=== PATIENT | male | born 1945 | race Caucasian/White ===

== ENCOUNTER 2021-03-01 09:07 | Outpatient (CLI) | payer MEDICARE, SELFPAY ==
--- NOTE | 2021-03-01 | ECG_ITS ---
Measurements Intervals [place] Rate: 52 P: 30 DC: 146 QRS: -39 QRSD: 129 T: 19 QT: 423 QTc: 396 Interpretive Statements SINUS BRADYCARDIA LEFT AXIS DEVIATION BORDERLINE AV CONDUCTION DELAY RIGHT BUNDLE BRANCH BLOCK BASELINE ARTIFACT- V4-V6 ABNORMAL ECG Electronically Signed On 03-01-2021 10:52:16 CDT by Abkar Mohan D.O.
[2021-03-01 10:09] LABS: Basophils Absolute Auto 0.1 K/mm3 (0.0-0.1); Basophils Percent Auto 0.9 % (0.2-1.2); Eosinophils Absolute Auto 0.1 K/mm3 (0-0.3); Eosinophils Percent Auto 0.9 % (0-4.4); Hematocrit 38.8 % (42.0-52.0); Hemoglobin 12.9 g/dL (14.0-18.0); Immature Granulocyte Absolute 0.02 K/mm3 (0.00-0.031); Immature Granulocyte Percent A 0.3 % (0-0.5); Lymphocytes Absolute Auto 1.59 K/mm3 (0.9-3.2); Lymphocytes Percent Auto 23.8 % (18.3-44.2); Mean Corpuscular HGB Conc 33.2 g/dl (32-36); Mean Corpuscular Hemoglobin 28.8 pg (26-34); Mean Corpuscular Volume 86.6 fl (80-100); Mean Platelet Volume 10.4 fl (7.4-10.4); Monocytes Absolute Auto 0.6 K/mm3 (0.1-0.6); Monocytes Percent Auto 8.8 % (2.6-8.5); Neutrophils Absolute Auto 4.4 K/mm3 (1.3-6.7); Neutrophils Percent Auto 65.3 % (45.5-73.1); Platelet Count Result 160 k/mm3 (150-375); Red Blood Count 4.48 M/mm3 (4.6-6.20); Red Cell Distribution Width 14.4 % (11.5-14.5); White Blood Count 6.7 K/mm3 (4.5-10.0)
[2021-03-01 10:21] LABS: Anion Gap 4 mmol/L (8-16); Blood Urea Nitrogen 24 mg/dL (9-20); Calcium 8.9 mg/dL (8.4-10.2); Carbon Dioxide 29 mmol/L (22-30); Chloride 99 mmol/L (98-107); Estimated Glomerular Filt Rate > 60; Glucose 87 mg/dL (75-110); Potassium 4.5 mmol/L (3.4-5.0); Sodium 132 mmol/L (137-145)
== END 2021-03-01 09:08 | disposition home or self-care (01) ==
PROVIDERS: PCP Family Medicine
DX: N52.9 Male erectile dysfunction, unspecified (principal); R94.31 Abnormal electrocardiogram [ECG] [EKG]
CPT/HCPCS: 36415; 80048; 85025; 87086; 93005

== ENCOUNTER → 2021-07-31 09:07 | Outpatient (CLI) | payer MEDICARE, SELFPAY ==
--- NOTE | ~2021-07-31 | XR_ITS ---
XR hip RT min 3V w AP pelvis DATE: 07/31/2021 09:37 INDICATION: Right hip pain TECHNIQUE: AP pelvis. AP and crosstable lateral views of right hip COMPARISON: None FINDINGS: There is diffuse osteopenia. Degenerative disc disease is noted in the lumbar area. The pubic symphysis and sacroiliac joints are intact. No pelvic fracture or bone destruction is detected. There is bilateral hip osteoarthritis, greater on the left. No fracture or dislocation, avascular necrosis or bone destruction of the right hip. Inflatable penile prosthesis is noted. 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
== END ==
PROVIDERS: PCP Family Medicine; Visit Provider Orthopaedic Surgery
DX: M25.551 Pain in right hip (principal); M85.89 Other specified disorders of bone density and structure, multiple sites; M51.36 Other intervertebral disc degeneration, lumbar region; M16.0 Bilateral primary osteoarthritis of hip
CPT/HCPCS: 73502

== ENCOUNTER 2021-08-07 10:13 | Outpatient (CLI) | payer MEDICARE, SELFPAY ==
--- NOTE | ~2021-08-07 | XR_ITS ---
EXAMINATION: XR lg joint inject/asp w image DATE: 08/07/2021 11:39 INDICATION: Unilateral primary osteoarthritis of the right hip TECHNIQUE: A time-out was performed to verify the patient's name, date of , and procedure to b e performed. The procedure including the risks, benefits, and alternatives was discussed with the pat ient. Risks discussed included bleeding and infection. The patient understood the risks and agreed to proceed. The skin overlying the right hip joint was prepped and draped in usual sterile fashion. A nesthetic was administered with 1% lidocaine subcutaneously. A 22 G needle was advanced under fluoro scopic guidance into the joint. Injection of 1 mL of Omnipaque 240 confirmed intra-articular positio n of the needle. Subsequently, injectate consisting of 7 mL of a 5:2 mixture of 1% lidocaine: 10 mg/ mL Kenalog for a total dosage of 20 mg Kenalog was instilled. Washout of contrast was seen confirming intra-articular administration. The needle was removed and the entry site was cleaned and dressed. There were no immediate complications. Fluoroscopy exposure time was 0.1 minutes. The total number of images was 1. Total DAP was 0.3 mGycm^2 FINDINGS: Real-time fluoroscopy demonstrates the needle and contrast in the right hip joint. Patient' s pain prior to procedure:3/10. Patient's pain following the procedure: 0/10. IMPRESSION: 1. Right hip joint injection of local anesthetic and steroid with decrease in the patient's presentin g pain. Reviewed, dictated and finalized at location A. IMPRESSION: 1. Right hip joint injection of local anesthetic and steroid with decrease in t he patient's presenting pain.
== END 2021-08-07 10:14 | disposition home or self-care (01) ==
LOC: ANHIMG 10:16
PROVIDERS: PCP Family Medicine; Visit Provider Orthopaedic Surgery
DX: M25.551 Pain in right hip (principal); M16.11 Unilateral primary osteoarthritis, right hip
CPT/HCPCS: 20610; 77002; J3301; Q9966

== ENCOUNTER 2021-09-11 12:21 | Outpatient (CLI) | payer MEDICARE, SELFPAY ==
--- NOTE | ~2021-09-11 | MR_ITS ---
EXAMINATION: MR hip RT wo con DATE: 09/11/2021 13:35 INDICATION: Right hip pain TECHNIQUE: Magnetic resonance imaging (MRI) of the right hip was performed without intravenous contr ast. Sequences included full-field axial PD-weighted FS FSE and T1-weighted FSE, coronal of the pelvi s with PD-weighted FS FSE, T2-weighted FSE and T1-weighted FSE, small field of view of the right hip with axial PD-weighted FS FSE, sagittal PD-weighted FS FSE, coronal PD-weighted FS FSE and coronal T 2 weighted FSE. Additional radial T1-weighted FGR oriented orthogonal to the acetabular rim were obta ined for evaluation of the labrum. COMPARISON: Right hip radiographs dated 07/31/2021 FINDINGS: Bones/labrum/cartilage: Alignment is normal. No fracture, avascular necrosis or pathologic marrow replacing process. Low sig nal intensity sclerotic bone island at L5. Severe lower lumbar predominant spondylosis. Diffuse right labral degeneration most severe superolateral and anterosuperiorly where it has a macerated appearan ce. There are several small os acetabula and along the rim of the anterosuperior to anterior acetabul um. Partial-thickness cartilage loss with underlying subarticular cystlike changes along the superola teral to anterosuperior rim of the acetabulum. Additional partial thickness cartilage loss along the femoral head also with anterior and anterosuperior medial predominance without degenerative subchondr al changes. Small marginal osteophytes about the femoral head. Similar findings suggested on the larg er field of view images of the pelvis but not diagnostically evaluated at the contralateral left hip. Fluid: Asymmetric minimal right hip joint effusion. 1.9 x 2.2 x 1.4 cm paravertebral cyst arising from the a nterosuperior right acetabulum is positioned along the cephalad margin of the reflected head of the r ight rectus femoris tendon. Physiologic amount fluid at the left hip. Mild increased fluid signal rikki ng the greater trochanters consistent with mild bilateral gluteus medius bursitis. Soft tissues: Normal and symmetric muscle bulk and signal in the pelvis and visualized proximal thighs. 8 x 4 x 2.5 similar intramuscular lipoma within the proximal right vastus intermedius. Small enthesophyte at the lesser trochanteric insertion of the otherwise normal left iliopsoas tendon. Mild tendinopathy witho ut discrete tears at the bilateral gluteus medius medius and minimus tendons. The bilateral proximal hamstring tendons are normal. Penile prosthesis with reservoir in at the left anterior pelvis. Prosta tomegaly measuring 4.7 x 3.6 cm. Large T2 hyperintense cysts arising from the lower poles of both kid neys measuring 7 cm on the right and 8 cm on the left. Moderate diverticulosis along the distal desce nding and proximal sigmoid colon. No pathologically enlarged pelvic/inguinal lymphadenopathy. A few tiny foci of susceptibility artifact in the skin surface at the right groin. IMPRESSION: 1. Moderate right hip osteoarthritis with extensive labral degeneration. Similar findings suggested b ut not diagnostically evaluated on the larger field of view images at the contralateral left hip. 2. Mild bilateral gluteus medius bursitis and mild bilateral gluteus medius and minimus tendinopathy without discrete tears. 3. Severe lower lumbar spondylosis. 4. Prostatomegaly. Reviewed, dictated and finalized at location A. ER APPRENTICE IMPRESSION: 1. Moderate right hip osteoarthritis with extensive labral degeneration. Simila r findings suggested but not diagnostically evaluated on the larger field of vi ew images at the contralateral left hip. 2. Mild bilateral gluteus medius bursitis and mild bilateral gluteus medius and minimus tendinopathy without discrete tears. 3. Severe lower lumbar spondy
== END 2021-09-11 12:22 | disposition home or self-care (01) ==
LOC: ANHIMG 12:26
PROVIDERS: PCP Family Medicine; Visit Provider Orthopaedic Surgery
DX: M16.11 Unilateral primary osteoarthritis, right hip (principal); M47.816 Spondylosis without myelopathy or radiculopathy, lumbar region; M70.71 Other bursitis of hip, right hip; N40.0 Benign prostatic hyperplasia without lower urinary tract symptoms
CPT/HCPCS: 73721

== ENCOUNTER 2021-11-26 12:28 | Outpatient (CLI) | payer MEDICARE, SELFPAY ==
--- NOTE | ~2021-11-26 | XR_ITS ---
EXAMINATION: XR lg joint inject/asp w image DATE: 11/26/2021 13:32 INDICATION: Right hip pain. TECHNIQUE: A time-out was performed to verify the patient's name, date of , and procedure to b e performed. The procedure including the risks, benefits, and alternatives was discussed with the pat ient. Risks discussed included bleeding and infection. The patient understood the risks and agreed to proceed. The skin overlying the right hip joint was prepped and draped in usual sterile fashion. A nesthetic was administered with 1% lidocaine subcutaneously. A 22 G needle was advanced under fluoro scopic guidance into the joint. Injection of 1 mL of Omnipaque 240 confirmed intra-articular positio n of the needle. Subsequently, injectate consisting of 5 mL 1% lidocaine and 2 mL 10 mg/mL Kenalog w as instilled. The needle was removed and the entry site was cleaned and dressed. There were no imme diate complications. Fluoroscopy exposure time was 0.1 minutes. The total number of images was 1. FINDINGS: Real-time fluoroscopy demonstrates the needle in the right hip joint. IMPRESSION: 1. Fluoroscopy guided right hip joint injection of local anesthetic and steroid. Reviewed, dictated and finalized at location A. MING TEACHER IMPRESSION: 1. Fluoroscopy guided right hip joint injection of local anesthetic and steroid .
== END 2021-11-26 12:29 | disposition home or self-care (01) ==
PROVIDERS: PCP Family Medicine; Visit Provider Orthopaedic Surgery
DX: M25.551 Pain in right hip (principal)
CPT/HCPCS: 20610; 77002; J3301; Q9966

== ENCOUNTER 2021-12-20 13:34 | Outpatient (CLI) | payer MEDICARE, SELFPAY ==
[2021-12-20 13:57] LABS: Basophils Absolute Auto 0.1 K/mm3 (0.0-0.1); Basophils Percent Auto 1.2 % (0.2-1.2); Eosinophils Absolute Auto 0.2 K/mm3 (0-0.3); Eosinophils Percent Auto 2.1 % (0-4.4); Hematocrit 42.8 % (42.0-52.0); Hemoglobin 14.1 g/dL (14.0-18.0); Immature Granulocyte Absolute 0.02 K/mm3 (0.00-0.031); Immature Granulocyte Percent A 0.2 % (0-0.5); Lymphocytes Absolute Auto 1.74 K/mm3 (0.9-3.2); Lymphocytes Percent Auto 20.7 % (18.3-44.2); Mean Corpuscular HGB Conc 32.9 g/dl (32-36); Mean Corpuscular Hemoglobin 28.6 pg (26-34); Mean Corpuscular Volume 86.8 fl (80-100); Mean Platelet Volume 9.7 fl (7.4-10.4); Monocytes Absolute Auto 0.6 K/mm3 (0.1-0.6); Monocytes Percent Auto 7.2 % (2.6-8.5); Neutrophils Absolute Auto 5.8 K/mm3 (1.3-6.7); Neutrophils Percent Auto 68.6 % (45.5-73.1); Platelet Count Result 188 k/mm3 (150-375); Red Blood Count 4.93 M/mm3 (4.6-6.20); Red Cell Distribution Width 13.4 % (11.5-14.5); White Blood Count 8.4 K/mm3 (4.5-10.0)
[2021-12-20 14:15] LABS: CRP 0.5 mg/dL (<1.0)
[2021-12-20 14:27] LABS: Erythrocyte Sedimentation Rate 5 mm/hr (0-20)
== END 2021-12-20 13:35 | disposition home or self-care (01) ==
PROVIDERS: PCP Family Medicine; Visit Provider Nurse Practitioner
DX: M25.551 Pain in right hip (principal); M19.011 Primary osteoarthritis, right shoulder
CPT/HCPCS: 36415; 85025; 85652; 86140

== ENCOUNTER 2022-02-11 09:43 | Outpatient (CLI) | payer MEDICARE, SELFPAY ==
[2022-02-11 11:35] LABS: Albumin Level 4.3 g/dL (3.5-5.1); Estimated Glomerular Filt Rate > 60; Glucose 91 mg/dL (65-110)
[2022-02-11 11:36] LABS: Urine Cotinine NEGATIVE
[2022-02-11 11:53] LABS: Basophils Absolute Auto 0.1 K/mm3 (0.0-0.1); Basophils Percent Auto 0.6 % (0.2-1.2); Eosinophils Absolute Auto 0.1 K/mm3 (0-0.3); Eosinophils Percent Auto 1.8 % (0-4.4); Hematocrit 44.6 % (42.0-52.0); Hemoglobin 14.7 g/dL (14.0-18.0); Immature Granulocyte Absolute 0.03 K/mm3 (0.00-0.031); Immature Granulocyte Percent A 0.4 % (0-0.5); Lymphocytes Percent Auto 23.3 % (18.3-44.2); Mean Corpuscular Hemoglobin 28.3 pg (26-34); Mean Corpuscular Volume 85.8 fl (80-100); Mean Platelet Volume 10.1 fl (7.4-10.4); Monocytes Absolute Auto 0.6 K/mm3 (0.1-0.6); Monocytes Percent Auto 7.3 % (2.6-8.5); Neutrophils Absolute Auto 5.1 K/mm3 (1.3-6.7); Neutrophils Percent Auto 66.6 % (45.5-73.1); Platelet Count Result 194 k/mm3 (150-375); Red Cell Distribution Width 13.8 % (11.5-14.5); White Blood Count 7.7 K/mm3 (4.5-10.0)
== END 2022-02-11 09:44 | disposition home or self-care (01) ==
LOC: ANHSURGERY 09:48
PROVIDERS: PCP Family Medicine; Visit Provider Orthopaedic Surgery
DX: Z01.818 Encounter for other preprocedural examination (principal); M25.551 Pain in right hip; Z51.81 Encounter for therapeutic drug level monitoring; Z79.899 Other long term (current) drug therapy
CPT/HCPCS: 80307; 82040; 82565; 82947; 83036; 85025; 86850; 86900; 86901; 87081

== ENCOUNTER → 2022-02-19 10:40 | Outpatient (CLI) | payer MEDICARE, SELFPAY ==
--- NOTE | ~2022-02-19 | CT_ITS ---
EXAMINATION: CT hip RT wo con DATE: 02/19/2022 11:13 INDICATION: Right hip pain TECHNIQUE: High resolution computed tomography (CT) of the right hip was performed without intravenou s contrast. Additional sagittal and coronal reconstructions were performed. Automated exposure contro l and iterative reconstruction technique were employed. The dose-length product was 200.05 mGy-cm. COMPARISON: None FINDINGS: Advanced osteoarthritis at the right hip with marked osteolysis of the femoral head and cephalad aspe ct of the acetabulum. This results in cephalad subluxation of the right femur with the residual small portion of the femoral head remaining centered within the enlarged acetabulum. There is a small righ t hip joint effusion with prominent calcific debris. No fracture. Penile prosthesis with reservoir in the anterior left pelvis exerting some mass effect upon the bladder. Mild right sacroiliac osteoarth ritis. Moderate fatty atrophy of the right gluteus minimus muscle belly. IMPRESSION: 1. Advanced right hip osteoarthritis. Reviewed, dictated and finalized at location B.
== END ==
PROVIDERS: PCP Family Medicine; Visit Provider Nurse Practitioner
DX: M25.551 Pain in right hip (principal); M16.11 Unilateral primary osteoarthritis, right hip
CPT/HCPCS: 73700

== ENCOUNTER 2022-06-05 15:40 | Outpatient (CLI) | payer MEDICARE, SELFPAY ==
--- NOTE | ~2022-06-05 | CT_ITS ---
EXAMINATION: CT abdomen pelvis wo/w con DATE: 06/05/2022 16:42 INDICATION: Hematuria TECHNIQUE: Computed tomography (CT) of the pelvis was performed without intravenous contrast. The dos e-length product was 1350.08 mGy-cm. Automated exposure control and iterative reconstruction technique were employed. COMPARISON: No prior studies for comparison. FINDINGS: Lung bases are unremarkable. Heart size normal. No significant pleural or pericardial effus ion. There are bilateral renal cysts, slightly complicated on the left measuring up to 5.8 cm. The li eligio, spleen, pancreas, adrenal glands are unremarkable. No renal stones or significant hydronephrosis . Nonobstructive bowel gas pattern. No free air or free fluid. Moderate diffuse atherosclerosis of th e aorta with partially visualized penile prosthetic device. There is a right hip arthroplasty. Gallbl adder is present. There are calcified granulomas of the liver. No free air or free fluid. IMPRESSION: 1. No acute abdominal abnormality. 2: Bilateral renal cysts, largest in the left kidney has a mildly thickened wall. Recommend compariso n to previous outside examinations to assess stability. Reviewed, dictated and finalized at location A. IMPRESSION: 1. No acute abdominal abnormality. 2: Bilateral renal cysts, largest in the left kidney has a mildly thickened wal l. Recommend comparison to previous outside examinations to assess stability.
[2022-06-05 16:07] LABS: Estimated Glomerular Filt Rate > 60
== END 2022-06-05 15:41 | disposition home or self-care (01) ==
PROVIDERS: PCP Family Medicine; Visit Provider Family Medicine
DX: R31.9 Hematuria, unspecified (principal); N28.1 Cyst of kidney, acquired
CPT/HCPCS: 74178; Q9967

== ENCOUNTER 2022-12-02 07:59 | Outpatient (CLI) | payer MEDICARE, SELFPAY ==
--- NOTE | 2022-12-02 09:14 | ECG_ITS ---
Measurements Intervals [place] Rate: 51 P: 20 [place]: 209 QRS: -36 QRSD: 132 T: 50 QT: 456 QTc: 424 Interpretive Statements SINUS BRADYCARDIA MARKED LEFT AXIS DEVIATION [QRS AXIS < -30] RIGHT BUNDLE BRANCH BLOCK [120+ ms QRS DURATION, UPRIGHT V1, 40+ ms S IN I/aVL/V4/V5/V6] COMPARED TO ECG 03/01/2021 10:13:19 NO SIGNIFICANT CHANGES Electronically Signed On 12-02-2022 14:51:45 SCOURING MACHINE TENDER by Rafael Shoemaker M.D.
[2022-12-02 10:03] LABS: Basophils Absolute Auto 0.1 K/mm3 (0.0-0.1); Basophils Percent Auto 0.8 % (0.2-1.2); Eosinophils Absolute Auto 0.1 K/mm3 (0-0.3); Eosinophils Percent Auto 1.6 % (0-4.4); Hematocrit 43.9 % (42.0-52.0); Hemoglobin 14.4 g/dL (14.0-18.0); Immature Granulocyte Absolute 0.03 K/mm3 (0.00-0.031); Immature Granulocyte Percent A 0.4 % (0-0.5); Lymphocytes Absolute Auto 1.74 K/mm3 (0.9-3.2); Lymphocytes Percent Auto 22.7 % (18.3-44.2); Mean Corpuscular HGB Conc 32.8 g/dl (32-36); Mean Corpuscular Hemoglobin 27.3 pg (26-34); Mean Corpuscular Volume 83.1 fl (80-100); Mean Platelet Volume 10.5 fl (7.4-10.4); Monocytes Absolute Auto 0.7 K/mm3 (0.1-0.6); Neutrophils Percent Auto 65.5 % (45.5-73.1); Platelet Count Result 168 k/mm3 (150-375); Red Blood Count 5.28 M/mm3 (4.6-6.20); Red Cell Distribution Width 14.7 % (11.5-14.5); White Blood Count 7.7 K/mm3 (4.5-10.0)
[2022-12-02 10:18] LABS: Estimated Glomerular Filt Rate > 60; Glucose 85 mg/dL (65-110)
[2022-12-02 10:27] LABS: Urine Cotinine NEGATIVE
== END 2022-12-02 08:00 | disposition home or self-care (01) ==
LOC: ANHSURGERY 08:05
PROVIDERS: PCP Family Medicine; Visit Provider Orthopaedic Surgery
DX: Z01.812 Encounter for preprocedural laboratory examination (principal); Z01.810 Encounter for preprocedural cardiovascular examination; M16.12 Unilateral primary osteoarthritis, left hip; I45.10 Unspecified right bundle-branch block; R00.1 Bradycardia, unspecified
CPT/HCPCS: 80307; 82040; 82565; 82947; 83036; 85025; 86850; 86900; 86901; 87081; 93005

== ENCOUNTER 2022-12-15 00:14 | Day surgery (SDC) | payer MEDICARE, SELFPAY ==
[2022-12-02 08:12] VITALS: BMI 27.5
--- NOTE | 2022-12-02 08:35 | PC.NURSE ---
Report to the Outpatient Waiting Room, entrance under the green pavilion located off [facility], at time _0600 on date _12/15/22 . Planned Procedure Time: _0730 . Time changes happen often and if your time is changed the preop area will call you the afternoon before. - You and your visitor will be asked to self-screen and do not enter if you have any COVID symptoms. - Only one visitor is requested with a max of two and NO children visitors are allowed at this time. - The patient visitor may be requested to leave or wait in car when not with patient due to distancing restrictions. - A mask is optional within the hospital at this time. Patients may have clear liquids (water, carbonated beverages, clear teas, apple juice) until 3 hours prior to surgery with a maximum of 20 ounces. - No food from midnight until time of surgery - Infants may have breast milk until 4 hours before surgery, infant formula 6 hours prior to surgery. - Children will be allowed to drink immediately following surgery. If applicable, please bring a bottle or sippy cup to assist with drinking. Juice, water, soda, and popsicles are readily available. For infants on formula, please bring formula the day of surgery. Pacifiers are allowed. Take the following medications with a SIP of water the morning of surgery: __PREGABALIN DO NOT STOP ANY OF YOUR OTHER PRESCRIPTION MEDICATIONS PRIOR TO SURGERY ?EXCEPT THE FOLLOWING Medications to discontinue per physician NONE Date to take last dose Please no make-up, nail mauritian, hairspray, perfume, deodorant, or body powder the day of surgery. No jewelry (including any body piercings) or valuables the day of surgery, leave them at home. Please take a shower or bath the night before, or the morning of, surgery with an antibacterial soap. Wear comfortable, loose fitting clothing. Children are encouraged to wear pajamas. - Jewelry must be removed prior to entering the operating room. Rings and piercings that are not removed may be cut off. - The hospital will not accept responsibility for valuables. - Please leave all valuables, including medications, at home the day of surgery. If you are going home after surgery, a licensed driver's license examiner must drive you home. - NO public transportation without another adult if you receive anesthesia. - We recommend that an adult stay with you for 24 hours following discharge. - We also recommend that you do not drive, make important decision, drink alcoholic beverages, or take any drugs that were not prescribed by your health care provider for at least 24 hours after your discharge time. Follow any additional instructions given to you from your surgeon. If you or anyone in your household have experienced Covid symptoms in the past week, please notify your surgeon or the nurse liaison at the phone number below for possible testing. VERBAL AND WRITTEN instructions given to __PATIENT and asked if any additional questions and then verbalized understanding. Patient advised to call surgeon office or pre surgery nurse liaison [phone] if any additional questions.
[2022-12-02 08:54] VITALS: BP 156/83; PULSE 50; RESP 18; TEMP 36.7; O2SAT 100
--- NOTE | 2022-12-14 07:36 | WPDANESEPPF ---
Anes - Initial Pre Proc Eval Procedure: Operation Date: 12/15/22 07:30 Proposed Procedures p Left Total Hip Arthroplasty, Anterior Approach - Alejo Leroy MD Date/Time: 12/14/22 07:36 Surgeon: Alejo Leroy MD Pre Op Diagnosis: O.A. Lt Hip Patient Data Age: 77 Gender: M Height: 1.83 m Weight: 92 kg Last Vital Signs Temp 36.7 C 12/02/22 08:54 Pulse 50 L 12/02/22 08:54 Resp 18 12/02/22 08:54 BP 156/83 H 12/02/22 08:54 Pulse Ox 100 12/02/22 08:54 O2 Del Method Room Air 12/02/22 08:54 Allergies Allergy/AdvReac Type Severity Reaction Status Date / Time Penicillins Allergy Intermediate rash/HIVES Verified 12/15/22 06:11 Home Medications Medication Instructions Recorded Confirmed Type lisinopril 20 mg tablet 20 mg PO BID 07/31/21 12/15/22 History pramipexole 0.25 mg tablet 0.25 mg PO TID 07/31/21 12/15/22 History pregabalin 300 mg capsule 300 mg PO BID 07/31/21 12/15/22 History diclofenac sodium 75 mg 75 mg PO BID 12/02/22 12/15/22 History tablet,delayed release rivaroxaban 10 mg tablet (Xarelto) 10 mg PO DAILY PE prophylaxis s/p 12/04/22 12/04/22 Rx surgery 14 days #14 tabs ECG: Date of Service: 12/02/22 Procedure(s): CA 12 lead EKG Accession Number(s): [id number] cc: ~ ? Measurements Intervals? [place]? Rate: ? 51 ? P:? 20 [place]: ? 209? QRS:? -36 QRSD: ? 132? T:? 50 QT: ? 456? QTc:? 424? Interpretive Statements SINUS BRADYCARDIA MARKED LEFT AXIS DEVIATION [QRS AXIS < -30] RIGHT BUNDLE BRANCH BLOCK [120+ ms QRS DURATION, UPRIGHT V1, 40+ ms S IN I/aVL/V4/V5/V6] COMPARED TO ECG 03/01/2021 10:13:19 NO SIGNIFICANT CHANGES Electronically Signed On 12-02-2022 14:51:45 PRINTING ROLLER HANDLER by Rafael Shoemaker M.D. Patient hx anesthesia problems: none Family hx anesthesia problems: none Results Review: All pre-operative results and documents have been reviewed as part of the pre-operative evaluation. [facility] Past Medical History Medical History (Updated 12/14/22 @ 07:38 by Jay Geller MD) Arthritis of left hip Melanoma PETER (obstructive sleep apnea) Osteoarthritis of right shoulder Peripheral neuropathy Surgical History Surgical History History of penile implant History of right hip replacement 2020 at [place] Family History Family History Father Cerebrovascular accident Mother Cancer Social History Social History Smoking packs per day: 1 Smoking cigarettes per day: 20.0 Years smoked: 2 Smoking pack-years: 2.00 Smoking status: Former smoker Tobacco type: cigarettes Smoking end date: 10/26/68 Additional smoking assessment comments: DENIES ANY FORM OF TOBACCO USE Alcohol intake: current Drinks per week: 14 Substance use: never Living arrangements: with friend(s) Additional living arrangements comments: SIGNIFICANT OTHER Gender identity (if verbalized by the patient): Male Spiritual care concerns: No Anes - Eval Final PreProcedure Day of Procedure 12/14/22 07:36 Patient weight: overweight Heart: regular rate and rhythm Lungs: clear to auscultation and normal air movement Airway: Mallampati scale class II Neurological: alert and oriented Last oral intake: >/= 8 hours ASA classification: III Emergent: no Anesthetic plan: proceed Anesthesia type and monitoring: general ETT Results Review: All pre-operative results and documents have been reviewed as part of the pre-operative evaluation. Informed Consent: The patient's anesthetic plan and its attendant risks and benefits were
[2022-12-15] VITALS (16 sets, daily range): BP systolic 130–181; BP diastolic 68–94; PULSE 50–92; RESP 12–20; TEMP 36.3–36.8; O2SAT 88–100; BMI 27.1
--- NOTE | ~2022-12-15 | XR_ITS ---
XR surgery orthopedic Left total hip arthroplasty. TECHNIQUE: Fluoroscopy used during left total hip arthroplasty performed by [Alejo Leroy MD ] on 12/15/2022. 18 seconds with 2 images captured. ] FINDINGS: Images demonstrate a left total hip arthroplasty. Correlate with procedure note. IMPRESSION: Fluoroscopy used during left total hip arthroplasty procedure. Reviewed, dictated and finalized at location B. P LEADER
--- NOTE | ~2022-12-15 | XR_ITS ---
EXAMINATION: XR hip LT min 2V DATE: 12/15/2022 10:35 INDICATION: Postoperative evaluation following left total hip arthroplasty TECHNIQUE: Anteroposterior and lateral views of the left hip were obtained. COMPARISON: 12/04/2022 FINDINGS: Interval placement of a noncemented left total hip arthroplasty which appears well seated in near jer tomic alignment. Acetabular component appears affixed with a single screw. Expected subcutaneous gas in the postoperative bed. No fractures identified. Penile implant. Severe lower lumbar spondylosis. IMPRESSION: 1. Left total hip arthroplasty, negative for postoperative purposes. Reviewed, dictated and finalized at location A. HANDISE DISPLAYER
[2022-12-15] MEDS: ACETAMINOPHEN 500 MG TABLET 1000 MG PO (06:29)
[2022-12-15] MEDS: LACTATED RINGERS 1,000 ML 30 ML IV CONT ×2 (06:29→10:15)
[2022-12-15] MEDS: TRANEXAMIC ACID 1,000MG/ISO100 1,000 MG/100 ML BAG 200 MG IVPB (06:30)
--- NOTE | 2022-12-15 07:18 | WPDHPUPDATE1 ---
History and Physical Update Update Date/Time: 12/15/22 07:18 History and Physical has been reviewed, including an updated exam of the patient. There are NO changes in the patient's condition. Risks, benefits, and alternatives have been discussed and questions answered. Patient agrees to proceed with procedure.
[2022-12-15] MEDS: ceFAZolin 2 GM/D5W 50 ML 2 GM/50 ML BAG IVPB ×2 (07:29→16:08)
[2022-12-15] MEDS: ceFAZolin SODIUM 1 GM VIAL IV PUSH (09:46)
--- NOTE | 2022-12-15 10:20 | W.PM.PROC2 ---
Procedure Note - Detailed Date of Procedure 12/15/22 Pre-op Diagnosis O.A. Lt Hip Post-op Diagnosis Same Procedure Performed Left total hip replacement through an anterior approach with fluoroscopic assistance Surgeon Alejo Leroy MD Medical Office Professional Instructor Shahid Lew Anesthesia General Description of Procedure The patient was identified, proper side identified, and then taken to the operating room. After general anesthetic induction and intubation he was transferred over to the [place] table positioning supine in the usual manner for an anterior hip procedure. Positioning was assessed fluoroscopically after which the left hip and thigh was prepped and draped in the usual sterile fashion. 10 cc of the arthroplasty solution was injected into the subcutaneous tissue over the TFL muscle belly. Longitudinal incision was made over the muscle belly. Subcutaneous tissue was sharply dissected down to the TFL fascia which was incised in line with the fibers the TFL. The TFL was retracted laterally and the rectus femoris medially. The rectus fascia was divided. The branches of the anterior femoral circumflex artery were identified and cauterized allowing for access to the hip capsule. Pericapsular fatty tissue was removed. The capsule was divided in an inverted T-fashion. The neck cut was made one fingerbreadth above the level of the lesser trochanter. Head fragment was removed and the acetabulum cleared of debris. Acetabulum was sequentially reamed under fluoroscopic visualization up to 57 mm. A 58 cup was inserted under fluoroscopic visualization in approximately 40? of abduction and 15? of anteversion following the patient's anatomy. It was further secured with a single screw and then the liner for the size 36 head was placed. The femur was then delivered up into the wound with the appropriate releases. The proximal femur was prepared for the size 13 stem and a trial reduction was undertaken. Overall alignment was assessed fluoroscopically in the AP and lateral views noting it to be satisfactory. Trial components were removed. The wound was irrigated with pulsatile lavage. The real size 13 high offset micro plasty stem was then seated. This construct with a size 36, standard head gave excellent zoroastrian of leg lengths and stability so the real size 36 standard ceramic head was attached to the neck of the femoral component after it had been cleaned and dried. Hip was again reduced and stability assessed, and it was noted to be stable. 3 minute dilute Betadine wash/soak was carried out. After final lavage of the wound, the periarticular tissues were injected with an additional 50 cc of the arthroplasty solution. 1 g of tranexamic acid was left in the wound. The capsule was reapproximated with #2 Vicryl suture, the TFL fascia with 0 looped PDS suture, the subcu with two of strata fix in the deeper layers and two of strata fix subcuticular stitch. Tissue adhesive was used for the skin. Sterile dressing was applied. He tolerated the procedure well. He was transferred back to a bed and taken to recovery area in stable condition. There were no known intraoperative complications. Estimated blood loss was 250 cc. He received perioperative antibiotics. Estimated Blood Loss 250 Drains No Packing No Pathology None sent Complications No immediate complications Condition Stable Disposition PACU [facility] Billing Surgery - Charge Forward: Surgery Billing (32928 - VITO; [id number] -intraoperative fluoro use)
[2022-12-15] MEDS: fentaNYL CITRATE INJ (*CRX) 100 MCG/2 ML VIAL 25 MCG IV PUSH ×8 (10:32→11:16)
[2022-12-15 10:57] LABS: Hematocrit 39.6 % (42.0-52.0); Hemoglobin 13.2 g/dL (14.0-18.0)
[2022-12-15] MEDS: HYDROmorphone HCL INJ (*CRX) 1 MG/ML SYR 0.5 MG IV PUSH (11:29)
--- NOTE | 2022-12-15 12:11 | ADMGEN ---
This patient, Rafa Aguirre, was admitted to Medical Room 249-01. Patient/family oriented to hospital policies and general routines including ID bracelet, bed and alarms, visiting hours, pain management, procedures, bathroom and other care routines, personal items, smoking policy, room service/diet, and visiting hours. Information on how to activate the Rapid Response Team has been discussed. Patient/Family are encouraged to report perceived risks to care and to ask questions if they do not understand what they are told or what they should do.
[2022-12-15] MEDS: ONDANSETRON INJ 4 MG/2 ML VIAL IV PUSH ×2 (12:22→15:22)
[2022-12-15] MEDS: SODIUM CHLORIDE 0.9% IV 1,000 ML 125 ML IV CONT ×2 (12:23→21:57)
--- NOTE | 2022-12-15 13:00 | WPDCN ---
Assessment and Plan Assessment and plan (1) Arthritis of left hip: Code(s): M16.12 - Unilateral primary osteoarthritis, left hip Status: Acute Assessment and Plan: Postoperative day 0 status post left total hip replacement through anterior approach. Wound care, pain control, and DVT prophylaxis deferred to Dr. Leroy. (2) Hypertension: Code(s): I10 - Essential (primary) hypertension Status: Acute Assessment and Plan: Blood pressures were reviewed and they have been running a bit high postoperatively, likely due to pain. Continue lisinopril 20 mg b.i.d. and monitor closely. (3) Restless leg syndrome: Code(s): G25.81 - Restless legs syndrome Status: Acute Assessment and Plan: Continue pramipexole 2.2 5 mg t.i.d.. (4) Peripheral neuropathy: Code(s): G62.9 - Polyneuropathy, unspecified Status: Acute Assessment and Plan: Continue pregabalin 300 mg b.i.d.. (5) Obstructive sleep apnea: Code(s): G47.33 - Obstructive sleep apnea (adult) (pediatric) Status: Acute Assessment and Plan: Patient may use oral appliance from home. Plan Thank you for allowing us to participate in this patient's care. Please do not hesitate to contact us with any questions. Time spent on consultation: 40 minutes. HPI Data of Consult Date/Time: 12/15/22 13:00 Requesting Physician: Alejo Leroy MD Consult Narrative Reason for consult: Postoperative medical management. Narrative: This is a 77-year-old male with hypertension, restless leg syndrome, sleep apnea (uses oral appliance), and osteoarthritis whom the hospitalist service has been consulted for help managing his medical conditions postoperatively. He has had longstanding pain in his left hip not amenable to conservative outpatient treatment and he elected for replacement today. His surgery was performed under general anesthesia with no immediate complications documented and an estimated blood loss of 250 mL. He had nausea for several hours following his surgery which has improved with Zofran. He was able to eat a small amount of soup for lunch but his appetite still isn't that great. His pain is pretty well controlled and he has no specific complaints at this time. Specifically he denies fever, chills, sweats, chest pain, shortness a breath, and vomiting. He also denies paresthesias, skin color, and temperature changes distal to the surgical site. Review of Systems Review of Systems: Twelve systems were reviewed. He believes that his hypertension is well controlled on home medications. Blood pressures have been a bit high postoperatively, likely due to the pain and nausea. He is on primary PACs on pregabalin for restless leg syndrome and idiopathic peripheral neuropathy respectively, both which are well controlled. No history of venous thromboembolism. Except as documented, all other systems were reviewed and are negative. [facility] Past Medical History Medical History Hypertension Melanoma Obstructive sleep apnea Uses an oral appliance. Osteoarthritis Peripheral neuropathy Raynaud's syndrome Restless leg syndrome Shingles (2018) Skin cancer History of basal cell, squamous cell, and melanoma. Surgical History Surgical History Amputation of left index finger (2018) History of basal cell carcinoma excision History of bilateral inguinal hernia repair History of left hip replacement (12/15/22) History of melanoma excision (2009) Right forearm. History of penile implant History of repair of right rotator cuff (2011) History of right hip replacement (02/2022) History of squamous cell carcinoma excision History of tonsillectomy History of total replacement of right shoulder joint (06/2022) History of umbilical hernia repair Family History Family History (R
[2022-12-15] MEDS: PRAMIPEXOLE 0.25 MG TABLET PO (16:08)
[2022-12-15] MEDS: HYDROcodone/acetaminophen (*CRX) 7.5-325 MG TABLET 1 TAB PO ×2 (16:10→20:38)
[2022-12-15] MEDS: SENNA/DOCUSATE SODIUM TABLET 2 TAB PO (17:35)
[2022-12-15] MEDS: lisinopriL 20 MG TABLET PO (17:35)
[2022-12-15] MEDS: PREGABALIN (*CRX) 75 MG CAPSULE 300 MG PO (17:36)
--- NOTE | 2022-12-15 20:23 | PC.NURSE ---
Called hospitalist, Cheryl Elizabeth, to ask if pt could have something for c/o sore throat. Hospitalist will put order in.
[2022-12-15] MEDS: FAMOTIDINE 20 MG TABLET PO (20:38)
[2022-12-15] MEDS: BENZOCAINE/MENTHOL (*BKC) 18 EA LOZENGE 1 LOZENGE PO (21:57)
[2022-12-16 00:01] VITALS: BP 144/79; PULSE 67; RESP 20; TEMP 37; O2SAT 95
[2022-12-16] MEDS: HYDROcodone/acetaminophen (*CRX) 7.5-325 MG TABLET 1 TAB PO ×2 (00:18→11:07)
[2022-12-16] MEDS: BENZOCAINE/MENTHOL (*BKC) 18 EA LOZENGE 1 LOZENGE PO (00:19)
[2022-12-16] MEDS: ceFAZolin 2 GM/D5W 50 ML 2 GM/50 ML BAG IVPB ×2 (00:19→07:53)
[2022-12-16 04:59] VITALS: BP 138/74; PULSE 60; RESP 20; TEMP 36.4; O2SAT 97
[2022-12-16 05:03] VITALS: BP 138/74; PULSE 60; RESP 20; TEMP 36.4; O2SAT 97
[2022-12-16] MEDS: ACETAMINOPHEN 325 MG TABLET 650 MG PO (05:41)
[2022-12-16 05:44] LABS: Basophils Absolute Auto 0.1 K/mm3 (0.0-0.1); Basophils Percent Auto 0.4 % (0.2-1.2); Eosinophils Percent Auto 0.1 % (0-4.4); Hematocrit 40.1 % (42.0-52.0); Immature Granulocyte Absolute 0.04 K/mm3 (0.00-0.031); Immature Granulocyte Percent A 0.3 % (0-0.5); Lymphocytes Absolute Auto 1.49 K/mm3 (0.9-3.2); Lymphocytes Percent Auto 12.2 % (18.3-44.2); Mean Corpuscular HGB Conc 32.4 g/dl (32-36); Mean Corpuscular Hemoglobin 27.8 pg (26-34); Mean Corpuscular Volume 85.9 fl (80-100); Mean Platelet Volume 10.1 fl (7.4-10.4); Monocytes Absolute Auto 1.3 K/mm3 (0.1-0.6); Monocytes Percent Auto 10.6 % (2.6-8.5); Neutrophils Absolute Auto 9.3 K/mm3 (1.3-6.7); Neutrophils Percent Auto 76.4 % (45.5-73.1); Platelet Count Result 222 k/mm3 (150-375); Red Blood Count 4.67 M/mm3 (4.6-6.20); Red Cell Distribution Width 14.9 % (11.5-14.5); White Blood Count 12.2 K/mm3 (4.5-10.0)
[2022-12-16 05:52] LABS: Anion Gap 8 mmol/L (8-16); Blood Urea Nitrogen 17 mg/dL (9-20); Calcium 8.2 mg/dL (8.4-10.2); Carbon Dioxide 27 mmol/L (22-30); Chloride 98 mmol/L (98-107); Estimated CRCL calculation 76 ml/min; Estimated Glomerular Filt Rate > 60; Glucose 104 mg/dL (65-110); Sodium 133 mmol/L (137-145)
[2022-12-16] MEDS: SODIUM CHLORIDE 0.9% IV 1,000 ML 125 ML IV CONT (06:41)
--- NOTE | 2022-12-16 08:03 | PM.DS ---
DS: Admitting Diagnosis Discharge Date 12/16/2022 Admitting Diagnosis Primary osteoarthritis of left hip DS: Discharge Diagnosis Discharge Diagnosis (1) Status post total hip replacement, left: Code(s): Z96.642 - Presence of left artificial hip joint Status: Acute Plan 77-year-old male postop day 1 after left total hip arthroplasty with Dr. Leroy using anterior approach. Overall doing very well and was productive with therapy yesterday. Uneventful overnight stay. Plan to discharge home today and follow up in the office in 2 weeks for wound check. Postoperative wound care and medications were reviewed with him in detail. He was informed to call our office if any further questions or concerns prior to his scheduled follow-up. DS: Summary Hospital Course Reason for hospitalization: Observation after outpatient procedure Hospital Course: 77-year-old male admitted for observation after left total hip arthroplasty using anterior approach. Uneventful overnight stay. Pain is well controlled. He was seen by therapy yesterday and plan to do so again today prior to discharge. Discharge home later today with scheduled follow-up in 2 weeks in our office. Status at Discharge Functional status at discharge: uses cane/walker Overall status at discharge: patient is progressing back to baseline Time Spent with Patient Time attestation: Total time spent providing and/or coordinating discharge services: Time spent: Less than 30 minutes Exam Const: General: comfortable and no acute distress Eyes: General: appearance normal, both eyes and all related structures Resp: Effort & Inspection: normal respiratory effort GI: Inspection: non-distended Skin: General skin exam: normal color and no erythema Neuro: Sensory Exam: No normal sensation (Slight numbness into the anterior lateral left thigh) Extrem: Other: Exam of the left hip demonstrates a clean and dry surgical dressing. Neurovascular status left lower extremity intact. Psych: Mental Status: mental status grossly normal DS: Data Data Completed and Pending Labs on day of discharge: Labs from last 24 hours 12/16/22 12/16/22 12/15/22 05:07 05:07 10:51 WBC 12.2 H RBC 4.67 Hgb 13.0 L 13.2 L Hct 40.1 L 39.6 L MCV 85.9 MCH 27.8 MCHC 32.4 RDW 14.9 H Plt Count 222 MPV 10.1 Immature Gran % (Auto) 0.3 Neut % (Auto) 76.4 H Lymph % (Auto) 12.2 L [place] % (Auto) 10.6 H Eos % (Auto) 0.1 Baso % (Auto) 0.4 Lymph # (Auto) 1.49 [place] # (Auto) 1.3 H Eos # (Auto) 0.0 Baso # (Auto) 0.1 Abs Immat Gran (auto) 0.04 H Absolute Neuts (auto) 9.3 H Absolute Nucleated RBC 0.0 Nucleated RBC % 0.0 Sodium 133 L Potassium 4.0 Chloride 98 Carbon Dioxide 27 Anion Gap 8 BUN 17 Creatinine 0.90 Estim Creat Clear Calc 76 Estimated GFR > 60 Glucose 104 Calcium 8.2 L Magnesium 2.0 Discharge Plan Discharge Patient Disposition: Home, Self-Care Discharge Instructions: 3 times daily for 20 minutes each time, reclining in bed with ice packs over the incision and a pillow underneath the calf of the affected leg, not under the knee. Your wound is glued so it is okay to remove the dressing, get into the shower and get the wound wet in two days. Be sure to read through all the information that came from a my office and the hospital. Most of the answers you will need can be found that material. Call the office with any questions that you cannot find answers to, or concerns you may have. After the Xarelto is completed, start taking one coated 325 mg aspirin daily and do this for four more weeks. Please call [facility] at as soon as possible to arrange for/verify your follow-up appointment to be seen in 2 weeks. Also, call the office with any orthopedic/surgical related questions prior to follow-up. Be sure to get up and move around several times brando
[2022-12-16 08:09] VITALS: RESP 20; O2SAT 98
[2022-12-16] MEDS: polyethylene glycoL 3350 17 GM POWD.PACK PO (08:49)
[2022-12-16] MEDS: SENNA/DOCUSATE SODIUM TABLET 2 TAB PO (08:50)
[2022-12-16] MEDS: FAMOTIDINE 20 MG TABLET PO (08:50)
[2022-12-16] MEDS: lisinopriL 20 MG TABLET PO (08:50)
[2022-12-16] MEDS: PRAMIPEXOLE 0.25 MG TABLET PO ×2 (08:50→12:21)
[2022-12-16] MEDS: RIVAROXABAN 10 MG TABLET PO (08:50)
[2022-12-16] MEDS: PREGABALIN (*CRX) 75 MG CAPSULE 300 MG PO (08:53)
--- NOTE | 2022-12-16 09:12 | P.PNAN_ITS ---
Anes - Prog Note Post-Op Date/Time: 12/16/22 09:12 Cardiovascular status: normal Respiratory status: normal Airway patency: baseline Mental status: baseline Post-Op hydration status: normal Vital Signs: Last Vital Signs Temp 97.5 F L 12/16/22 05:03 Pulse 60 12/16/22 05:03 Resp 20 12/16/22 08:09 BP 138/74 12/16/22 05:03 Pulse Ox 98 12/16/22 08:09 O2 Del Method Room Air 12/16/22 08:09 O2 Flow Rate 2 12/15/22 11:45 Pain Score (VAS): 0/10 I/O: Intake & Output 12/15/22 12/16/22 12/16/22 23:59 07:59 15:59 Intake Total 1290 1440 290 Output Total 600 900 Balance 1290 840 -610 Laboratory Tests 12/16/22 05:07 12/16/22 05:07 12/15/22 12/16/22 12/16/22 10:51 05:07 05:07 WBC 12.2 H RBC 4.67 Hgb 13.2 L 13.0 L Hct 39.6 L 40.1 L MCV 85.9 MCH 27.8 MCHC 32.4 RDW 14.9 H Plt Count 222 MPV 10.1 Immature Gran % (Auto) 0.3 Neut % (Auto) 76.4 H Lymph % (Auto) 12.2 L [place] % (Auto) 10.6 H Eos % (Auto) 0.1 Baso % (Auto) 0.4 Lymph # (Auto) 1.49 [place] # (Auto) 1.3 H Eos # (Auto) 0.0 Baso # (Auto) 0.1 Abs Immat Gran (auto) 0.04 H Absolute Neuts (auto) 9.3 H Absolute Nucleated RBC 0.0 Nucleated RBC % 0.0 Sodium 133 L Potassium 4.0 Chloride 98 Carbon Dioxide 27 Anion Gap 8 BUN 17 Creatinine 0.90 Estim Creat Clear Calc 76 Estimated GFR > 60 Glucose 104 Calcium 8.2 L Magnesium 2.0 Post-procedural complaints: none Patient Feedback: Patient satisfied with anesthetic care.
== END 2022-12-16 13:00 | disposition home or self-care (01) ==
LOC: ANHSURGERY 10:13 → ANH2MED 11:54
PROVIDERS: PCP Family Medicine; Visit Provider Orthopaedic Surgery
PROC: (CPT 27130; principal; 2022-12-15 07:30)
DX: M16.12 Unilateral primary osteoarthritis, left hip (principal); G47.33 Obstructive sleep apnea (adult) (pediatric); G62.9 Polyneuropathy, unspecified; G25.81 Restless legs syndrome; Z87.891 Personal history of nicotine dependence
CPT/HCPCS: 27130; 36415; 73502; 80048; 80307; 82040; 82565; 82947; 83036; 83735; 85014; 85018; 85025; 86850; 86900; 86901; 87081; 93005; 97110; 97161; 97165; 97530; 97535; 99199; A9270; C1776; J0171; J0330; J0690; J1100; J1170; J2250; J2270; J2370; J2405; J2704; J2710; J2795; J3010; J7030; J7120

== ENCOUNTER 2023-02-04 15:45 | Observation (INO) | payer MEDICARE, SELFPAY ==
[2023-02-04] VITALS (16 sets, daily range): BP systolic 129–154; BP diastolic 68–96; PULSE 53–60; RESP 11–20; TEMP 36.3–37.2; O2SAT 97–100; BMI 27.1
--- NOTE | ~2023-02-04 | XR_ITS ---
EXAM: XR hip LT 2V w AP pelvis DATE: 02/04/2023 16:22 HISTORY: deformity, DISLOCATION . COMPARISON: 12/15/2022. FINDINGS: Normal mineralization. Pelvic phleboliths. Scattered atherosclerotic vascular calcificatio ns. Penile implant. Bilateral hip arthroplasties. Superior and slightly anterior dislocation of the l eft femoral component from the acetabular cup. No osseous or hardware fracture. No abnormal perihilar hardware lucency. IMPRESSION: Dislocation of the left hip prosthesis. Reviewed, dictated and finalized at location K.
--- NOTE | ~2023-02-04 | XR_ITS ---
EXAM: XR hip LT 1V DATE: 02/04/2023 17:31 HISTORY: POST REDUCTION . COMPARISON: Same date at 4:14 PM. FINDINGS/IMPRESSION: Successful interval reduction of the left hip arthroplasty. No acute osseous fra cture detected. No radiographic evidence of hardware-related complication. Reviewed, dictated and finalized at location K.
[2023-02-04] MEDS: MORPHINE SULFATE (*CRX) 2 MG/ML INJ IV PUSH (16:04)
[2023-02-04 16:38] LABS: Basophils Absolute Auto 0.1 K/mm3 (0.0-0.1); Eosinophils Absolute Auto 0.1 K/mm3 (0-0.3); Eosinophils Percent Auto 1.6 % (0-4.4); Hemoglobin 12.3 g/dL (14.0-18.0); Immature Granulocyte Absolute 0.03 K/mm3 (0.00-0.031); Immature Granulocyte Percent A 0.4 % (0-0.5); Lymphocytes Percent Auto 20.1 % (18.3-44.2); Mean Corpuscular HGB Conc 33.2 g/dl (32-36); Mean Corpuscular Hemoglobin 27.8 pg (26-34); Mean Corpuscular Volume 83.5 fl (80-100); Mean Platelet Volume 10.2 fl (7.4-10.4); Monocytes Absolute Auto 0.6 K/mm3 (0.1-0.6); Monocytes Percent Auto 7.9 % (2.6-8.5); Neutrophils Absolute Auto 4.8 K/mm3 (1.3-6.7); Platelet Count Result 205 k/mm3 (150-375); Red Blood Count 4.43 M/mm3 (4.6-6.20); Red Cell Distribution Width 14.8 % (11.5-14.5)
[2023-02-04 16:48] LABS: Alanine Aminotransferase 17 U/L (6-50); Albumin Level 4.1 g/dL (3.5-5.1); Alkaline Phosphatase 99 U/L (38-126); Anion Gap 5 mmol/L (8-16); Aspartate Amino Transferase 33 U/L (17-59); Bilirubin,Total 0.6 mg/dL (0.2-1.3); Blood Urea Nitrogen 20 mg/dL (9-20); Calcium 8.8 mg/dL (8.4-10.2); Carbon Dioxide 28 mmol/L (22-30); Chloride 100 mmol/L (98-107); Estimated CRCL calculation 64 ml/min; Estimated Glomerular Filt Rate > 60; Glucose 84 mg/dL (65-110); Potassium 4.7 mmol/L (3.4-5.0); Sodium 133 mmol/L (137-145)
[2023-02-04 16:52] LABS: INR 1.1; Prothrombin Time 13.6 Seconds (11.1-14.7)
[2023-02-04 16:53] LABS: Partial Thromboplastin Time 26.8 SECONDS (22.3-36.8)
--- NOTE | 2023-02-04 17:02 | ED.LOWEXIN ---
HPI - Extremity Injury (Lower) General Chief Complaint: Extremity Injury, Lower Stated Complaint: hip replacement dislocated Time Seen by Provider: 02/04/23 15:46 History of Present Illness HPI Narrative: Patient is a 77-year-old male who presents ER with concerns for hip dislocation. Patient was sitting on a barstool when he felt his hip slide out of socket. He is currently 7 weeks status post left total hip arthroplasty. Patient has pain and some dull numbness to the left lower extremity. Has chronic neuropathy and has gotten Reserve's numbness to the left hip that is also chronic. Patient has no additional concerns this time. No additional injury. No vascular compromise. Related Data Home Medications Medication Instructions Recorded Confirmed lisinopril 20 mg tablet 20 mg PO BID 07/31/21 12/29/22 pramipexole 0.25 mg tablet 0.25 mg PO TID 07/31/21 12/29/22 pregabalin 300 mg capsule 300 mg PO BID 07/31/21 12/29/22 acetaminophen 325 mg capsule 325 mg PO Q6H PRN Pain 12/29/22 12/29/22 (Tylenol) Allergies Allergy/AdvReac Type Severity Reaction Status Date / Time Penicillins Allergy Intermediate rash/HIVES Verified 02/04/23 15:59 Review of Systems Review of Systems: All systems reviewed & are unremarkable except as noted in HPI and below Constitutional: Constitutional: Denies chills, Denies fatigue and Denies fever(s) Gastrointestinal: Gastrointestinal: Denies abdominal pain, Denies nausea and Denies vomiting Musculoskeletal: Musculoskeletal: Denies back pain, Reports arthralgias and Denies joint swelling Neurologic: Denies syncope, Denies focal weakness and Reports numbness (Chronic) [facility] Past Medical History Medical History Hypertension Melanoma Obstructive sleep apnea Uses an oral appliance. Osteoarthritis Peripheral neuropathy Raynaud's syndrome Restless leg syndrome Shingles (2018) Skin cancer History of basal cell, squamous cell, and melanoma. Surgical History Surgical History Amputation of left index finger (2019) History of basal cell carcinoma excision History of bilateral inguinal hernia repair History of left hip replacement (12/15/22) History of melanoma excision (2009) Right forearm. History of penile implant History of repair of right rotator cuff (2011) History of right hip replacement (02/2022) History of squamous cell carcinoma excision History of tonsillectomy History of total replacement of right shoulder joint (06/2022) History of umbilical hernia repair Family History Family History Father Cerebrovascular accident Mother Cancer Social History Social History Social History: Surrogate medical decision maker: Kina Vargas, friend. Code status: Full code. Smoking packs per day: 1 Smoking cigarettes per day: 20.0 Years smoked: 2 Smoking pack-years: 2.00 Smoking status: Former smoker Tobacco type: cigarettes Smoking end date: 10/26/68 Alcohol intake: current Drinks per week: 14 Substance use: never Lack of Transportation: No Lack of Food: Never True Current Housing: Decline to Answer Concerned About Future Housing: No Difficulty Paying Gas/Electric Bills: No Difficulty Paying for Meds: No Currently Unemployed: No Education: Decline to Answer Difficulty w/ Childcare or Family Care: No Additional living arrangements comments: Lives in [place] with significant other. Occupation/Education: retired Spiritual care concerns: No Exam Narrative: GENERAL: Well-appearing, well-nourished, and in no acute distress. HEAD: Normocephalic, atraumatic. EYES: PERRL and EOMI. ENT: Mucous membranes moist. CHEST: Clear to auscultation. No respiratory distress. HEART: Regular rate and rhythm. Normal p
--- NOTE | 2023-02-04 17:19 | PC.NURSE ---
propofal 50 mg ivp x1 at 1719 propofal 30 mg ivp x1 @ [address] lopez. @ 1720 xray called for post reduction
[2023-02-04] MEDS: SODIUM CHLORIDE 0.9% IV 1,000 ML 999 ML (17:20)
[2023-02-04] MEDS: PROPOFOL IV EMULSION 200 MG/20 ML VIAL 90 MG IV PUSH (17:20)
--- NOTE | 2023-02-04 22:06 | ADMGEN ---
This patient, Rafa Aguirre, was admitted to Medical Room 252-01. Patient/family oriented to hospital policies and general routines including ID bracelet, bed and alarms, visiting hours, pain management, procedures, bathroom and other care routines, personal items, smoking policy, room service/diet, and visiting hours. Information on how to activate the Rapid Response Team has been discussed. Patient/Family are encouraged to report perceived risks to care and to ask questions if they do not understand what they are told or what they should do.
[2023-02-05 04:49] VITALS: BP 111/65; PULSE 75; RESP 18; TEMP 36.6; O2SAT 97
--- NOTE | 2023-02-05 08:20 | PM.DS ---
DS: Admitting Diagnosis Discharge Date 02/05/2023 Admitting Diagnosis Anterior dislocation left hip DS: Discharge Diagnosis Discharge Diagnosis (1) Anterior dislocation of hip: Code(s): S73.036A - Other anterior dislocation of unspecified hip, initial encounter Status: Acute (2) Status post total hip replacement, left: Code(s): Z96.642 - Presence of left artificial hip joint Status: Acute Plan 77-year-old male now almost 8 weeks status post left total hip arthroplasty with Dr. Leroy. Anterior dislocation of the left hip on 02/04/2023. This was reduced in the ER. Doing very well this morning and denies any pain. No sign of fracture on the x-rays. He does have scheduled follow-up next week and he will keep this appointment. He can be full weight-bearing but needs to use the knee immobilizer with a walker. No issues at the incision site. DS: Summary Hospital Course Reason for hospitalization: Observation after anterior left hip dislocation Hospital Course: 77-year-old male nearing 8 weeks status post total left hip arthroplasty with Dr. Leroy. Has been doing very well until yesterday when he was sitting in a bar stool felt that his left hip slid out of socket and dislocated. He was seen in the ER yesterday and the hip was reduced. No sign of fracture on the x-rays. He was admitted for observation and doing very well this morning. He denies any significant pain. Plan to follow-up next week with Dr. Leroy for recheck. Status at Discharge Functional status at discharge: uses cane/walker Overall status at discharge: patient is progressing back to baseline Time Spent with Patient Time attestation: Total time spent providing and/or coordinating discharge services: Time spent: Less than 30 minutes Exam Const: General: comfortable and no acute distress HENMT: Mouth: Yes moist mucous membranes Eyes: General: appearance normal, both eyes and all related structures Resp: Effort & Inspection: normal respiratory effort GI: Inspection: non-distended Skin: General skin exam: normal color and no erythema Other: Incision site over the anterior left hip is nearly healed. No sign of drainage. Extrem: Other: Exam of the left hip is limited due to him being in the knee immobilizer. He is able to plantar flex and dorsiflex the left ankle without difficulty. Calves negative. No irritability with mild internal external rotation of the left hip. Neurovascular status left lower extremity intact. Psych: Mental Status: mental status grossly normal DS: Data Data Completed and Pending Labs on day of discharge: Labs from last 24 hours 02/04/23 02/04/23 02/04/23 16:25 16:25 16:25 WBC 7.0 RBC 4.43 L Hgb 12.3 L Hct 37.0 L MCV 83.5 MCH 27.8 MCHC 33.2 RDW 14.8 H Plt Count 205 MPV 10.2 Immature Gran % (Auto) 0.4 Neut % (Auto) 69.0 Lymph % (Auto) 20.1 [place] % (Auto) 7.9 Eos % (Auto) 1.6 Baso % (Auto) 1.0 Lymph # (Auto) 1.40 [place] # (Auto) 0.6 Eos # (Auto) 0.1 Baso # (Auto) 0.1 Abs Immat Gran (auto) 0.03 Absolute Neuts (auto) 4.8 Absolute Nucleated RBC 0.0 Nucleated RBC % 0.0 PT 13.6 INR 1.1 APTT 26.8 Sodium 133 L Potassium 4.7 Chloride 100 Carbon Dioxide 28 Anion Gap 5 L BUN 20 Creatinine 0.90 Estim Creat Clear Calc 64 Estimated GFR > 60 Glucose 84 Calcium 8.8 Total Bilirubin 0.6 AST 33 ALT 17 Alkaline Phosphatase 99 Total Protein 7.0 Albumin 4.1 Discharge Plan Discharge Attending physician on discharge: Alejo Leroy Discharging Clinician: Tom Willson Patient Disposition: Home, Self-Care Activity: other - see discharge instructions Diet: as tolerated and regular Wound Care Instructions: incision open to air Discharge Instructions: For Dr. Leroy: Use the knee immobilizer on the left knee full-time with a walker. You may
--- NOTE | 2023-02-09 09:57 | PM.IMHP ---
H&P: HPI History of Present Illness Date/Time: 02/09/23 09:57 Chief Complaint: Left hip dislocation Narrative: 77-year-old male six weeks out from left hip replacement. Was sitting on a barstool when he felt his left hip subluxate and then dislocate. Was seen in the emergency room where the hip was relocated under sedation. Having no pain. Review of Systems Constitutional: Constitutional: Reports no additional constitutional complaints, Denies excessive sweating and Denies fatigue Eyes: Eyes: Reports no additional eye complaints ENT: Reports system reviewed and no additional complaints, except as documented Cardiovascular: Cardiovascular: Denies chest pain at rest and Denies dyspnea Respiratory: Respiratory: Reports no additional respiratory complaints and Denies dyspnea Gastrointestinal: Gastrointestinal: Reports no additional gastrointestinal complaints Musculoskeletal: Musculoskeletal: Reports as per HPI Integumentary/Breasts: Skin/Breast: Reports system reviewed and no additional complaints, except as docu Neurologic: Reports as per HPI Endocrine: Endocrine: Denies excessive sweating and Denies fatigue Hematologic/Lymphatic: Hematologic/Lymphatic: Denies easy bleeding and Denies easy bruising PMFSH Past Medical History Medical History Hypertension Melanoma Obstructive sleep apnea Uses an oral appliance. Osteoarthritis Peripheral neuropathy Raynaud's syndrome Restless leg syndrome Shingles (2018) Skin cancer History of basal cell, squamous cell, and melanoma. Surgical History Surgical History Amputation of left index finger (2018) History of basal cell carcinoma excision History of bilateral inguinal hernia repair History of left hip replacement (12/15/22) History of melanoma excision (2009) Right forearm. History of penile implant History of repair of right rotator cuff (2011) History of right hip replacement (02/2022) History of squamous cell carcinoma excision History of tonsillectomy History of total replacement of right shoulder joint (06/2022) History of umbilical hernia repair Family History Family History Father Cerebrovascular accident Mother Cancer Social History Social History Social History: Surrogate medical decision maker: Kina Vargas, friend. Code status: Full code. Smoking packs per day: 0.5 Smoking cigarettes per day: 10.0 Years smoked: 3 Smoking pack-years: 1.50 Smoking status: Former smoker Tobacco type: cigarettes Smoking end date: 10/26/68 Alcohol intake: current Drinks per week: 4 Substance use: never Substance use type: does not use Lack of Transportation: No Lack of Food: Never True Current Housing: I Have Housing Concerned About Future Housing: No Difficulty Paying Gas/Electric Bills: No Difficulty Paying for Meds: No Currently Unemployed: No Education: Master's Degree or Higher Difficulty w/ Childcare or Family Care: No Additional living arrangements comments: Lives in [place] with significant other. Occupation/Education: retired Spiritual care concerns: No Meds Home Medications and Allergies Home Medications Medication Instructions Recorded Confirmed Type lisinopril 20 mg tablet 20 mg PO BID 07/31/21 02/04/23 History pramipexole 0.25 mg tablet 0.25 mg PO TID 07/31/21 02/04/23 History pregabalin 300 mg capsule 300 mg PO BID 07/31/21 02/04/23 History acetaminophen 325 mg capsule 325 mg PO Q6H PRN Pain 12/29/22 02/04/23 History (Tylenol) Allergies Allergy/AdvReac Type Severity Reaction Status Date / Time Penicillins Allergy Intermediate rash/HIVES Verified 02/04/23 23:39 Exam Const: General: alert and awake; No acute distress Orientation/consciousness: patien
== END 2023-02-05 11:10 | disposition home or self-care (01) ==
LOC: ANHED 18:57 → ANH2MED 02-05 08:33
PROVIDERS: Admitting Provider Orthopaedic Surgery; Emergency Provider Emergency Medicine; PCP Family Medicine; Visit Provider Nurse Practitioner
DX: T84.021A Dislocation of internal left hip prosthesis, initial encounter (principal); G62.9 Polyneuropathy, unspecified; I10 Essential (primary) hypertension; G47.33 Obstructive sleep apnea (adult) (pediatric); I65.8 Occlusion and stenosis of other precerebral arteries; G25.81 Restless legs syndrome; Z99.89 Dependence on other enabling machines and devices; Z87.891 Personal history of nicotine dependence; F10.90 Alcohol use, unspecified, uncomplicated; Z79.1 Long term (current) use of non-steroidal anti-inflammatories (NSAID); Z79.899 Other long term (current) drug therapy
CPT/HCPCS: 27252; 36415; 73501; 73502; 80053; 85025; 85610; 85730; 96361; 96374; 96375; 99285; G0378; J2270; J2704; J7030